=== PATIENT | male | born 1955 | race Caucasian/White ===

== ENCOUNTER 2018-03-21 20:43 | Emergency (ER) | payer OTHER ==
[2018-03-21] MEDS ORDERED: PROPOFOL 1,000 MG/100 ML INFUS..BTL IV ONE (20:51)
[2018-03-21] MEDS ORDERED: AMIODARONE HCL INJ 150 MG/3 ML VIAL IV ONE (20:52)
[2018-03-21] MEDS ORDERED: DEXTROSE 5%-WATER 500 ML with AMIODARONE HCL 900 MG IV PRN ×2 (20:56)
[2018-03-21] MEDS ORDERED: PIPERACILLIN/TAZOBACTAM 3.375 GM VIAL IV ONE (21:00)
[2018-03-21 21:10] LABS: ABSOLUTE BASOPHILS # (AUTO) 0.1 10^3/uL (0.0-0.2); ABSOLUTE EOSINOPHILS # (AUTO) 0.5 10^3/uL (0.0-0.6); ABSOLUTE LYMPHOCYTES (AUTO) 5.8 10^3/uL (0.5-4.7); ABSOLUTE MONOCYTES (AUTO) 0.5 10^3/uL (0.1-1.4); ABSOLUTE NEUT (AUTO) 5.8 10^3/uL (1.7-8.2); BASOPHILS % (AUTO) 0.5 % (0-2); EOSINOPHILS % (AUTO) 3.8 % (0-6); HEMATOCRIT 52.3 % (37.9-51.0); HEMOGLOBIN 16.9 g/dL (13.5-17.0); LYMPHOCYTES % (AUTO) 45.6 % (13-45); MEAN CORPUSCULAR HEMOGLOBIN 30.6 pg (27.0-33.4); MEAN CORPUSCULAR HGB CONC 32.4 g/dL (32.0-36.0); MEAN CORPUSCULAR VOLUME 95 fl (80-97); MONOCYTES % (AUTO) 4.2 % (3-13); PLATELET COUNT 189 10^3/uL (150-450); RED BLOOD COUNT 5.54 10^6/uL (4.35-5.55); RED CELL DISTRIBUTION WIDTH 17.1 % (11.5-14.0); SEGMENTED NEUTROPHILS % (AUTO) 45.9 % (42-78); TOTAL CELLS COUNTED % (AUTO) 100 %; WHITE BLOOD COUNT 12.7 10^3/uL (4.0-10.5)
--- NOTE | 2018-03-21 21:22 | RADIOLOGY REPORT (SQ) ---
EXAM DESCRIPTION: CHEST SINGLE VIEW COMPLETED DATE/TIME: 03/21/2018 9:14 pm REASON FOR STUDY: Cardiac arrest, ET tube placement COMPARISON: None. EXAM PARAMETERS: NUMBER OF VIEWS: One view. TECHNIQUE: Single frontal radiographic view of the chest acquired. RADIATION DOSE: NA LIMITATIONS: None. FINDINGS: LUNGS AND PLEURA: Mild opacification is suggested in the right upper lobe. MEDIASTINUM AND HILAR STRUCTURES: No masses. Contour normal. HEART AND VASCULAR STRUCTURES: Heart size borderline. BONES: No acute findings. HARDWARE: Endotracheal tube has its tip 6 cm above the noelle. OTHER: No other significant finding. IMPRESSION: Endotracheal tube placement as described. Cannot exclude limited right upper lobe pneum onia. Borderline heart size. TECHNICAL DOCUMENTATION: JOB ID: [id number] [employer]- All Rights Reserved Reading location - IP/workstation name: [email or web address]
[2018-03-21 21:25] LABS: ALANINE AMINOTRANSFERASE 546 U/L (21-72); ALBUMIN 3.6 g/dL (3.5-5.0); ALKALINE PHOSPHATASE 85 U/L (38-126); ASPARTATE AMINO TRANSFERASE 429 U/L (17-59); BILIRUBIN,DIRECT 0.6 mg/dL (0.0-0.4); BILIRUBIN,TOTAL 0.9 mg/dL (0.2-1.3); BLOOD UREA NITROGEN 29 mg/dL (7-20); CALCIUM 10.7 mg/dL (8.4-10.2); GLUCOSE 197 mg/dL (75-110); POTASSIUM 5.3 mmol/L (3.6-5.0); TOTAL PROTEIN 6.3 g/dL (6.3-8.2)
[2018-03-21 21:30] LABS: CARBON DIOXIDE 18 mmol/L (22-30); CHLORIDE 103 mmol/L (98-107); SODIUM 141.9 mmol/L (137-145)
[2018-03-21 21:31] LABS: ALCOHOL < 10 mg/dL (NONE DETECTED); ANION GAP 21 (5-19)
[2018-03-21 21:36] LABS: TROPONIN I 0.075 ng/mL
[2018-03-21] MEDS ORDERED: ATROPINE SULFATE INJ 1 MG/1 ML VIAL ONE (21:44)
--- NOTE | 2018-03-21 21:44 | RADIOLOGY REPORT (SQ) ---
EXAM DESCRIPTION: CT HEAD WITHOUT COMPLETED DATE/TIME: 03/21/2018 9:31 pm REASON FOR STUDY: Cardiac arrest, ET tube placement COMPARISON: None. TECHNIQUE: Axial images acquired through the brain without intravenous contrast. Images reviewed wi th bone, brain and subdural windows. Additional sagittal and coronal reconstructions were generated. Images stored on PACS. All CT scanners at this facility use dose modulation, iterative reconstruction, and/or weight based d osing when appropriate to reduce radiation dose to as low as reasonably achievable (ALARA). [facility]: Dose Right [facility]: CareDose [facility]: Dose Right [facility]: Teradose 4D [facility]: Smart [employer] RADIATION DOSE: CT Rad equipment meets quality standard of care and radiation dose reduction techniq ues were employed. CTDIvol: 55.2 mGy. DLP: 1056 mGy-cm. mGy. LIMITATIONS: None. FINDINGS: VENTRICLES: Normal size and contour. CEREBRUM: No masses. No hemorrhage. No midline shift. No evidence for acute infarction. Normal gra y/white matter differentiation. No areas of low density in the white matter CEREBELLUM: No masses. No hemorrhage. No alteration of density. No evidence for acute infarction. EXTRAAXIAL SPACES: No fluid collections. No masses. ORBITS AND GLOBE: No intra- or extraconal masses. Normal contour of globe without masses. CALVARIUM: No fracture. PARANASAL SINUSES: No fluid or mucosal thickening. SOFT TISSUES: No mass or hematoma. OTHER: No other significant finding. IMPRESSION: NORMAL BRAIN CT WITHOUT CONTRAST. EVIDENCE OF ACUTE STROKE: NO. COMMENT: Quality ID # [id number]: Final reports with documentation of one or more dose reduction techniques (e.g., Automated exposure control, adjustment of the mA and/or kV according to patient size, use of iterative reconstruction technique) TECHNICAL DOCUMENTATION: JOB ID: [id number] [employer]- All Rights Reserved Reading location - IP/workstation name: [email or web address]
--- NOTE | 2018-03-21 21:52 | RADIOLOGY REPORT (SQ) ---
EXAM DESCRIPTION: CT CHEST WITH COMPLETED DATE/TIME: 03/21/2018 9:31 pm REASON FOR STUDY: Cardiac arrest, ET tube placement COMPARISON: Chest x-ray 03/21/2018 TECHNIQUE: CT scan of the chest performed using helical scanning technique with dynamic intravenous contrast injection. Images reviewed with lung, soft tissue and bone windows. Reconstructed coronal and sagittal MPR images reviewed. All images stored on PACS. All CT scanners at this facility use dose modulation, iterative reconstruction, and/or weight based d osing when appropriate to reduce radiation dose to as low as reasonably achievable (ALARA). [facility]: Dose Right [facility]: CareDose [facility]: Dose Right [facility]: Teradose 4D [facility]: [employer] CONTRAST TYPE AND DOSE: contrast/concentration: Isovue 350.00 mg/ml; Total Contrast Delivered: 80.0 ml; Total Saline Delivered: 50.0 ml RENAL FUNCTION: Waived by the emergency room physician. RADIATION DOSE: CT Rad equipment meets quality standard of care and radiation dose reduction techniq ues were employed. CTDIvol: 20.4 mGy. DLP: 711 mGy-cm. . LIMITATIONS: None. FINDINGS: LUNGS AND PLEURA: There is opacification in the right upper lobe. Dependent opacification is present in both upper lobes and lower lobes. Ground-glass infiltrates are present. HILAR AND MEDIASTINAL STRUCTURES: No identified masses or abnormal nodes. HEART AND VASCULAR STRUCTURES: No aneurysm or dissection. No central pulmonary emboli. No pericardi al effusion. HARDWARE: An endotracheal tube has its tip 4 cm above the noelle and NG tube extends to the stomach. . UPPER ABDOMEN: No significant findings. Limited exam. THYROID AND OTHER SOFT TISSUES: No masses. No adenopathy. BONES: No significant finding. OTHER: No other significant finding. IMPRESSION: 1. Right upper lobe pneumonia. 2. Pulmonary vascular congestion dependent atelectasis in both lungs. Cannot exclude mild pulmonary edema. Tube placement as described. TECHNICAL DOCUMENTATION: JOB ID: [id number] Quality ID # [id number]: Final reports with documentation of one or more dose reduction techniques (e.g., Au tomated exposure control, adjustment of the mA and/or kV according to patient size, use of iterative reconstruction technique) 2010 [employer]- All Rights Reserved Reading location - IP/workstation name: [email or web address]
[2018-03-21 22:19] LABS: ARTERIAL BLOOD BASE EXCESS -9.2 mmol/L; ARTERIAL BLOOD H2CO3 1.88 mmol/L (1.05-1.35); ARTERIAL BLOOD HCO3 20.9 mmol/L (20-26); ARTERIAL BLOOD O2 SATURATION 99.3 % (94-98); ARTERIAL BLOOD PCO2 62.4 mmHg (35-45); ARTERIAL BLOOD PO2 248.5 mmHg (80-100); ARTERIAL BLOOD TOTAL CO2 22.8 mmol/L (23-27)
[2018-03-21 22:20] LABS: ARTERIAL BLOOD FIO2 100%
[2018-03-21 22:21] LABS: ARTERIAL BLOOD PH 7.14 (7.35-7.45)
--- NOTE | 2018-03-21 22:25 | ER Document Report ---
ED General - General Chief Complaint: Cardiac Arrest Stated Complaint: CARDIAC ARREST Time Seen by Provider: 03/21/18 20:56 Cannot obtain history due to: Intubated, Unstable vital signs TRAVEL OUTSIDE OF THE [place] IN LAST 30 DAYS: No - HPI Notes: 62-year-old male without any known medical problems presents by EMS after cardiac arrest at the gym. Family states he was "sparring" when he suddenly stated he did not feel well and collapsed "hyperventilating." Bystander CPR was initiated. Fire department states AED advised shock. EMS states they do not believe shock was actually discharged. When EMS arrived, he was in asystole. He was given a total of 4 rounds of epinephrine. Patient then had episode of V. tach followed by V. fib. Patient was defibrillated. He was given 300 mg of amiodarone. They attempted intubation with ketamine and succinylcholine without success. A Robby airway was inserted. Blood pressure was 234/150. Family states he is very healthy. He takes multiple supplements including protein shakes and 5 hour energy. EMS states pupils appeared irregular prior to paralyzing patient. - Related Data Allergies/Adverse Reactions: No Known Allergies Allergy (Unverified 03/21/18 22:35) Past Medical History - General Cannot obtain history due to: Intubated, Unstable vital signs - Social History Smoking Status: Unknown if Ever Smoked Family History: Reviewed & Not Pertinent Patient has suicidal ideation: No Patient has homicidal ideation: No Endocrine Medical History: Reports: Hx Diabetes Mellitus Type 2 Renal/ Medical History: Denies: Hx Peritoneal Dialysis Review of Systems - Review of Systems -: Yes ROS unobtainable due to patient's medical condition - Intubated Physical Exam - Vital signs Vitals: Pulse Ox 96 03/21/18 20:43 - Notes Notes: PHYSICAL EXAMINATION: GENERAL: Patient intubated with Robby airway. Has some spontaneous respirations and swallowing with blinking of eyes. HEAD: Atraumatic, normocephalic. EYES: Pupils equal round and pinpoint, minimally reactive ENT: nares patent, orally intubated with Robby airway. Mucous membranes moist. NECK: C-collar in place. LUNGS: Rhonchorous breath sounds equal bilaterally. Orally intubated. HEART: Bradycardic rate and regular rhythm, no chest wall injury ABDOMEN: Soft, normoactive bowel sounds. EXTREMITIES: No trauma appreciated to all extremities. No cyanosis. NEUROLOGICAL: Some spontaneous movements. No purposeful movements. PSYCH: Unable to assess. SKIN: Warm, Dry, normal turgor, no rashes or lesions noted. Course - Re-evaluation Re-evalutation: 03/21/18 22:43 Strips reviewed from EMS and patient had episode of V. tach and V. fib. Ice packs applied to groin and axilla and temp Almendarez inserted. Placed on amiodarone drip upon arrival. Robby airway removed and intubated with 8 ET tube without difficulty using a glide scope. Oral gastric tube inserted. Bedside echocardiogram shows no evidence of effusion. CXR shows ETT 6cm above noelle. ETT pushed 2cm. Patient has sinus bradycardia. CT head unremarkable. CT chest shows bilateral infiltrates with possible pleural effusions ETT 4cm above noelle after placement change. Bradycardia worsened in the 40s and patient was given 0.5 mg of Ativan. Cultures obtained. IV antibiotics ordered. Discussed with harness tier at [facility], , and patient accepted. Transfer arranged. 03/21/18 23:21 flight crew at bedside. intermittent episdoes of bradycardia with junctional rhythm. sedated on propofol gtt. some shivering from ice packs. - Vital Signs Vital signs: Temp Pulse Resp BP Pulse Ox 97.7 F 14 112/81 97 03/21/18 23:11 03/21/18 23:11 03/21/18 23:11 03/21/18 23:11 - Laboratory Result Diagrams: 03/21/18 20:45 03/21/18 20:45 Laboratory results interpreted by me: 03/21/18 03/21/18 03/21/18 20:45 20:45 20:45 WBC 12.7 H Hct 52.3 H RDW 17.1 H Lymphocytes % 45.6 H Absolute Lymphocytes 5.8 H Carbonic Acid ABG pH ABG pCO2 ABG pO2 ABG Total CO2 ABG O2 Saturation Potassium 5.3 H Carbon Dioxide 18 L Anion Gap 21 H BUN 29 H Creatinine 2.70 H Est GFR ( Amer) 29 L Est GFR (Non-Af Amer) 24 L Glucose 197 H Calcium 10.7 H Direct Bilirubin 0.6 H AST 429 H ALT 546 H NT-Pro-B Natriuret Pep 977 H 03/21/18 21:50 WBC Hct RDW Lymphocytes % Absolute Lymphocytes Carbonic Acid 1.88 H ABG pH 7.14 L* ABG pCO2 62.4 H ABG pO2 248.5 H ABG Total CO2 22.8 L ABG O2 Saturation 99.3 H Potassium Carbon Dioxide Anion Gap BUN Creatinine Est GFR ( Amer) Est GFR (Non-Af Amer) Glucose Calcium Direct Bilirubin AST ALT NT-Pro-B Natriuret Pep Procedures - Intubation Orotracheal Airway evaluation: Normal anatomy Intubation method: Orotracheal Blade size: 4 Equipment used: Glidescope ETT size: 8.0 ETT secured at: Teeth ETT secured at (cm): 26 Breath Sounds after Intubation: Equal End tidal CO2 confirmed: Yes Ventilator settings: SIMV Post Intubation Xray: Yes Intubation Complications: No complications - Ultrasound/Bedside Ultrasound/Bedside Ultrasound: Other - no pericaridal effusion Critical Care Note - Critical Care Note Total time excluding time spent on procedures (mins): 60 - Critical care time spent obtaining history from patient or surrogate, discussions with consultants , development of treatment plan with patient or surrogate, evaluation of patient 's response to treatment, examination of patient, ordering and performing treatments and interventions, ordering and review of laboratory studies, re- evaluation of patient's condition, ordering and review of radiographic studies and review of old charts Discharge - Discharge Clinical Impression: Ventricular fibrillation Condition: Critical Disposition: [facility] Admitting Provider: Nata Referrals: DEUCE SALDIVAR MD [Primary Care Provider] - Follow up as needed
[2018-03-21 23:24] VITALS: BP 112/85
--- NOTE | 2018-03-22 07:35 | EKG REPORT ---
SEVERITY:- ABNORMAL ECG - ATRIAL FIBRILLATION, V-RATE 76-86 NONSPECIFIC T ABNORMALITIES, LATERAL LEADS : Confirmed by: Ken Jacobson MD 22-Mar-2018 07:34:53
--- NOTE | 2018-03-22 07:37 | EKG REPORT ---
SEVERITY:- ABNORMAL ECG - SINUS RHYTHM LEFT ATRIAL ABNORMALITY NONSPECIFIC ST-T CHANGES LATERAL LEADS. : Confirmed by: Ken Jacobson MD 22-Mar-2018 07:35:41
== END 2018-03-21 23:47 | disposition short-term general hospital (02) ==
LOC: ER 20:43
DX: I49.01 Ventricular fibrillation (principal); I46.9 Cardiac arrest, cause unspecified; R09.89 Other specified symptoms and signs involving the circulatory and respiratory systems; E11.9 Type 2 diabetes mellitus without complications
CPT/HCPCS: 93005; 99291; 51702; 96375; 96365; 36415; 87040; 80307; 82803; 83735; 85025; 80053; 84484; 83880; 71045; 70450; 71260; 94660; 93010; 31500; J0461; J2704; J7060; J0282; J2543

== ENCOUNTER 2018-05-09 07:05 | Emergency (ER) | payer OTHER ==
--- NOTE | 2018-05-09 08:35 | ER Document Report ---
ED General - General Chief Complaint: Knee Pain Stated Complaint: KNEE PAIN Time Seen by Provider: 05/09/18 08:00 Notes: Pt. is a 53 year old male presenting to the ED with swelling to right foot. Per the pt. is s/p cardiac arrest on 03/21/2018. Was d/eugenie from [facility] on 04/19/2018. Stated that from the cardiac arrest the pt. has suffered an anoxic brain injury. Stated that he has been getting better over the last few weeks as far as knowing the date and current events. stated that over the last two days she has noticed that the Pt. has had increased swelling and redness to the pinky toe of his right foot. Stated that since his injury he has been dx with Diabeties and has started Insulin. State that he had a DVT in his right leg while in the hospital and is currently on blood thinners for that. Stated that the Pt. has an apt with Vascular Surgery on 05/30 due to the diabetic neuropathy and DVT in the past. stated that today she thinks the Pt. is a little more confused than normal. Stated that the Pt has been getting better with remembering things and knowing current events but noticed a big change since the pt. woke up this morning. stated that it has been a long road of recovery with the Pt. since waking up from cardiac arrest, but noted he was doing a lot better. was worried of how Pt. could not tell her the date or what time of day it was this morning. Pt. currently denies CP, SOB, nausea, vomiting, abd pain, dysuria , fever, or URI sumptoms. Stated he only has pain in right pinky toe. PMH: Anoxic brain injury from cardiac arrest, diabetes, hypertension, hyperlipidemia, DVT, AICD Medications: Amlodipine, aspirin, atorvastatin, Lantus, Januvia, propanolol, Apixaban, gabapentin Allegies: none PCP: Vincent Dejesus TRAVEL OUTSIDE OF THE [place] IN LAST 30 DAYS: No - Related Data Allergies/Adverse Reactions: No Known Allergies Allergy (Unverified 03/21/18 22:35) Past Medical History - General Information source: Patient, Relative - Social History Smoking Status: Never Smoker Chew tobacco use (# tins/day): No Frequency of alcohol use: Rare Drug Abuse: None Lives with: Family Family History: Reviewed & Not Pertinent Patient has suicidal ideation: No Patient has homicidal ideation: No - Past Medical History Cardiac Medical History: Reports: Hx Hypertension Endocrine Medical History: Reports: Hx Diabetes Mellitus Type 2 Renal/ Medical History: Denies: Hx Peritoneal Dialysis Past Surgical History: Reports: Hx Cardiac Catheterization - pacemaker surgery Review of Systems - Review of Systems Constitutional: See HPI EENT: See HPI Cardiovascular: See HPI Respiratory: See HPI Gastrointestinal: See HPI Genitourinary: No symptoms reported Male Genitourinary: No symptoms reported Musculoskeletal: See HPI Skin: See HPI Hematologic/Lymphatic: See HPI Neurological/Psychological: See HPI Physical Exam - Vital signs Vitals: Temp Pulse Resp BP Pulse Ox 98.0 F 63 20 132/84 H 96 05/09/18 07:13 05/09/18 07:13 05/09/18 07:13 05/09/18 07:13 05/09/18 07:13 - Notes Notes: GENERAL: Alert, interacts well. No acute distress. HEAD: Normocephalic, atraumatic. EYES: Pupils equal, round, and reactive to light. Extraocular movements intact. ENT: Oral mucosa moist, tongue midline. NECK: Full range of motion. Supple. Trachea midline. LUNGS: Clear to auscultation bilaterally, no wheezes, rales, or rhonchi. No respiratory distress. HEART: Regular rate and rhythm. No murmur ABDOMEN: Soft, non-tender. Non-distended. Bowel sounds present in all 4 quadrants. EXTREMITIES: Moves all 4 extremities spontaneously. No edema, normal radial and dorsalis pedis pulses bilaterally. No cyanosis. No calf tenderness or swelling. BACK: no cervical, thoracic, lumbar midline tenderness. No saddle anesthesia, normal distal neurovascular exam. NEUROLOGICAL: Alert to self and , not to current date, slow speech but not slurred, per this is his intermittent baseline since cardiac arrest. PSYCH: Normal affect, normal mood. SKIN: Warm, dry, normal turgor. Ulcerated lesion 1cm x1cm noted distal pinky toe laterally with surrounding redness and warmth 5cm x5cm. FROM foot and toes R LE. No red streaking noted. Course - Re-evaluation Re-evalutation: Discussed Pt. change in mental status with the who originally wanted to refuse CT. Stated that she did not think he needed one because he has been increasingly confused and then alert since cardiac arrest. Stated that was his normal. Discussed Pts lab results with family, stated they have been watching his kidney function since his cardiac arrest and it has always been elevated. I offered to give the Pt. IV hydration in the ED and he wished to leave. and pt. both stated they would have him drink water at home but they did not want to stay in the ED any longer. Discussed WBC with who was surprised to see they were not elevated. Stated now she wishes to get a CT because she was hoping that there would be in infx which would be why the Pt. was intermittently confused. Stat CT ordered, although stated pt. was currently at a baseline mentation (that he has been for the last week.) Originally had refused pain medications, now Pt. stated that he wants it d/t pain in right foot. Will give RX for home use. stated they have an apt with the Pts Neurologist on 05/11 and they will ask about increasing the Pts Gabapentin. currently stated she thinks the Pt. takes it three times a day but does not know the dose. No signs of leukocytosis or wide spread infx, will treat cellulitis with oral abx. Extensive conversation with and Pt. about return precautions. Also offered admit for monitoring TIA/CVA symptoms. and Pt continue to refuse admission and stated that they want to go home. stated that she thinks the pt. is at his baseline mental status since cardiac arrest and stated that he has been intermittently confused and alert since event. very overwhelmed with current situation, at times crying in the room with Pt. CAOx4 and stated that she has been through a lot since cardiac arrest that she sometimes gets overwhelmed with the pts current mental state because he was "so perfect" before the cardiac arrest. continues to state that the Pt. is currently at his baseline mentally and she wishes to be d/c. She will follow up with Neuro on 05/11/2018. - Vital Signs Vital signs: Temp Pulse Resp BP Pulse Ox 97.8 F 61 18 130/83 H 97 05/09/18 11:15 05/09/18 11:15 05/09/18 11:15 05/09/18 11:15 05/09/18 11:15 - Laboratory Result Diagrams: 05/09/18 07:56 05/09/18 09:20 Laboratory results interpreted by me: 05/09/18 05/09/18 07:56 09:20 WBC 10.7 H RDW 15.8 H Carbon Dioxide 31 H BUN 26 H Creatinine 1.32 H Est GFR (Non-Af Amer) 55 L Glucose 152 H Direct Bilirubin 0.5 H Discharge - Discharge Clinical Impression: Cellulitis Qualifiers: Site of cellulitis: extremity Site of cellulitis of extremity: toe Laterality: right Qualified Code(s): L03.031 - Cellulitis of right toe Condition: Stable Disposition: HOME, SELF-CARE Additional Instructions: As we discussed you have been seen and treated in the emergency room for a skin infection of your right foot. Due to your diabetes the skin infection can become very serious. Take antibiotics as prescribed. Follow-up with primary care in 24-48 hours. Return to the emergency room should the redness or swelling around your foot get worse, you develop a fever, vomiting, or any other concerning symptoms. Prescriptions: Cephalexin Monohydrate [Keflex 500 mg Capsule] 500 mg PO QID 14 Days capsule Morphine Sulfate [Morphine Ir 15 Mg Tablet] 15 mg PO Q4H PRN #12 tablet PRN Reason: Sulfamethoxazole/Trimethoprim [Bactrim Ds Tablet] 1 each PO BID 14 Days tablet
[2018-05-09 08:55] LABS: ABSOLUTE EOSINOPHILS # (AUTO) 0.3 10^3/uL (0.0-0.6); ABSOLUTE LYMPHOCYTES (AUTO) 1.5 10^3/uL (0.5-4.7); ABSOLUTE MONOCYTES (AUTO) 0.9 10^3/uL (0.1-1.4); ABSOLUTE NEUT (AUTO) 7.9 10^3/uL (1.7-8.2); BASOPHILS % (AUTO) 0.4 % (0-2); EOSINOPHILS % (AUTO) 3.1 % (0-6); HEMATOCRIT 42.6 % (37.9-51.0); HEMOGLOBIN 14.9 g/dL (13.5-17.0); LYMPHOCYTES % (AUTO) 13.9 % (13-45); MEAN CORPUSCULAR HEMOGLOBIN 31.6 pg (27.0-33.4); MEAN CORPUSCULAR VOLUME 90 fl (80-97); MONOCYTES % (AUTO) 8.8 % (3-13); PLATELET COUNT 167 10^3/uL (150-450); RED BLOOD COUNT 4.72 10^6/uL (4.35-5.55); RED CELL DISTRIBUTION WIDTH 15.8 % (11.5-14.0); SEGMENTED NEUTROPHILS % (AUTO) 73.8 % (42-78); TOTAL CELLS COUNTED % (AUTO) 100 %; WHITE BLOOD COUNT 10.7 10^3/uL (4.0-10.5)
--- NOTE | 2018-05-09 09:04 | RADIOLOGY REPORT (SQ) ---
EXAM DESCRIPTION: FOOT RIGHT COMPLETE COMPLETED DATE/TIME: 05/09/2018 8:49 am REASON FOR STUDY: redness/swelling COMPARISON: None. NUMBER OF VIEWS: Three views. TECHNIQUE: AP, lateral and oblique radiographic images acquired of the right foot. LIMITATIONS: None. FINDINGS: MINERALIZATION: Normal. BONES: No acute fracture or dislocation. Bipartite tibia sesamoid bone overlying the head of the fir st metatarsal bone. Oral a sensory ossicles cuboid bone, normal anatomic variant. No worrisome bone lesions. JOINTS: Hallux valgus deformity and degenerative changes at the first metatarsophalangeal joint. As sociated bunion. SOFT TISSUES: Soft tissue swelling. Soft tissue vascular calcifications. No foreign body. OTHER: No other significant finding. IMPRESSION: 1. No acute osseous findings. 2. Degenerative changes and hallux valgus deformity at the first metatarsophalangeal joint. Associat ed bunion. TECHNICAL DOCUMENTATION: JOB ID: [id number] [employer]- All Rights Reserved Reading location - IP/workstation name: [email or web address]
[2018-05-09] MEDS ORDERED: MORPHINE SULFATE IR 15 MG TABLET PO ONE ×2 (10:01→10:36)
--- NOTE | 2018-05-09 10:03 | RADIOLOGY REPORT (SQ) ---
EXAM DESCRIPTION: CT HEAD WITHOUT COMPLETED DATE/TIME: 05/09/2018 9:42 am REASON FOR STUDY: change in mental status COMPARISON: None. TECHNIQUE: Axial images acquired through the brain without intravenous contrast. Images reviewed wi th bone, brain and subdural windows. Additional sagittal and coronal reconstructions were generated. Images stored on PACS. All CT scanners at this facility use dose modulation, iterative reconstruction, and/or weight based d osing when appropriate to reduce radiation dose to as low as reasonably achievable (ALARA). [facility]: Dose Right [facility]: CareDose [facility]: Dose Right [facility]: Teradose 4D [facility]: Smart [employer] RADIATION DOSE: CT Rad equipment meets quality standard of care and radiation dose reduction techniq ues were employed. CTDIvol: 53.2 mGy. DLP: 991 mGy-cm. LIMITATIONS: None. FINDINGS: VENTRICLES: Normal size and contour. The cisterns are patent. CEREBRUM: No masses. No hemorrhage. No midline shift. No evidence for acute infarction. Normal gra y/white matter differentiation. No areas of low density in the white matter. CEREBELLUM: No masses. No hemorrhage. No alteration of density. No evidence for acute infarction. EXTRAAXIAL SPACES: No fluid collections. No masses. ORBITS AND GLOBE: No intra- or extraconal masses. Normal contour of globe without masses. CALVARIUM: No fracture. PARANASAL SINUSES: Deviation of the nasal septum to the left of the midline. No fluid or mucosal th ickening. SOFT TISSUES: No mass or hematoma. OTHER: Atherosclerotic changes involving the cavernous portion of the internal carotid arteries. Ce rumen in the bilateral external auditory canals. IMPRESSION: 1. No acute intracranial abnormality. EVIDENCE OF ACUTE STROKE: NO. COMMENT: Quality ID # [id number]: Final reports with documentation of one or more dose reduction techniques (e.g., Automated exposure control, adjustment of the mA and/or kV according to patient size, use of iterative reconstruction technique) TECHNICAL DOCUMENTATION: JOB ID: [id number] [employer]- All Rights Reserved Reading location - IP/workstation name: [email or web address]
[2018-05-09 10:17] LABS: ALANINE AMINOTRANSFERASE 42 U/L (21-72); ALBUMIN 3.9 g/dL (3.5-5.0); ALKALINE PHOSPHATASE 67 U/L (38-126); ANION GAP 8 (5-19); ASPARTATE AMINO TRANSFERASE 28 U/L (17-59); BILIRUBIN,DIRECT 0.5 mg/dL (0.0-0.4); BILIRUBIN,TOTAL 1.1 mg/dL (0.2-1.3); BLOOD UREA NITROGEN 26 mg/dL (7-20); CALCIUM 9.8 mg/dL (8.4-10.2); CARBON DIOXIDE 31 mmol/L (22-30); CHLORIDE 98 mmol/L (98-107); GLUCOSE 152 mg/dL (75-110); POTASSIUM 4.3 mmol/L (3.6-5.0); SODIUM 137.4 mmol/L (137-145); TOTAL PROTEIN 7.1 g/dL (6.3-8.2)
[2018-05-09] MEDS ORDERED: NORMAL SALINE 1000 ML 1,000 ML IV ONE (10:36)
[2018-05-09 11:19] VITALS: BP 130/83
== END 2018-05-09 11:15 | disposition home or self-care (01) ==
LOC: ER 07:05
DX: L03.031 Cellulitis of right toe (principal); E11.40 Type 2 diabetes mellitus with diabetic neuropathy, unspecified; E78.5 Hyperlipidemia, unspecified; I82.401 Acute embolism and thrombosis of unspecified deep veins of right lower extremity; Z79.01 Long term (current) use of anticoagulants; G93.1 Anoxic brain damage, not elsewhere classified; I10 Essential (primary) hypertension; Z86.74 Personal history of sudden cardiac arrest; Z95.0 Presence of cardiac pacemaker; Z79.02 Long term (current) use of antithrombotics/antiplatelets; Z79.899 Other long term (current) drug therapy
CPT/HCPCS: 36415; 70450; 80053; 85025; 87040; 87077; 87186; 99284

== ENCOUNTER 2018-05-09 23:35 | Emergency (ER) | payer OTHER ==
[2018-05-10] MEDS ORDERED: LORAZEPAM INJ 2 MG/1 ML VIAL IV ONE (00:14)
--- NOTE | 2018-05-10 00:17 | ER Document Report ---
ED General - General Chief Complaint: medication reaction Stated Complaint: TREMORS Time Seen by Provider: 05/10/18 00:06 Notes: Patient is a 63-year-old male that comes to the emergency department for chief complaint of shaking and tremors. He states that his tremors started slightly 2 days ago after he started taking gabapentin, he states that now today before noon his tremors became much worse and now he cannot even hold anything to eat or drink, he cannot sleep. He denies any other complaints. He tried taking Benadryl at home without any change. TRAVEL OUTSIDE OF THE [place] IN LAST 30 DAYS: No - Related Data Allergies/Adverse Reactions: No Known Allergies Allergy (Unverified 03/21/18 22:35) Past Medical History - General Information source: Patient, Relative - Social History Smoking Status: Never Smoker Frequency of alcohol use: None Drug Abuse: None Lives with: Family Family History: Reviewed & Not Pertinent - Past Medical History Cardiac Medical History: Reports: Hx Hypertension Endocrine Medical History: Reports: Hx Diabetes Mellitus Type 2 Renal/ Medical History: Denies: Hx Peritoneal Dialysis Past Surgical History: Reports: Hx Cardiac Catheterization - pacemaker surgery Review of Systems - Review of Systems Constitutional: No symptoms reported EENT: No symptoms reported Cardiovascular: No symptoms reported Respiratory: No symptoms reported Gastrointestinal: No symptoms reported Genitourinary: No symptoms reported Male Genitourinary: No symptoms reported Musculoskeletal: See HPI Skin: No symptoms reported Hematologic/Lymphatic: No symptoms reported Neurological/Psychological: See HPI Physical Exam - Vital signs Vitals: Temp Pulse Resp Pulse Ox 99.4 F 76 16 100 05/09/18 23:49 05/09/18 23:49 05/09/18 23:49 05/09/18 23:49 - Notes Notes: GENERAL: Alert, appears uncomfortable, making jerking motion with torso and limbs, appears to be unintentionally moving extremities, mainly upper extremities. HEAD: Normocephalic, atraumatic. EYES: Pupils equal, round, and reactive to light. Extraocular movements intact. ENT: Oral mucosa moist, tongue midline. [Nares patent, no nasal septal hematoma , TM's intact.] NECK: Full range of motion. Supple. Trachea midline. LUNGS: Clear to auscultation bilaterally, no wheezes, rales, or rhonchi. No respiratory distress. HEART: Regular rate and rhythm. No murmur ABDOMEN: Soft, non-tender. Non-distended. Bowel sounds present in all 4 quadrants. EXTREMITIES: Moves all 4 extremities spontaneously. No edema, normal radial and dorsalis pedis pulses bilaterally. No cyanosis. BACK: no cervical, thoracic, lumbar midline tenderness. No saddle anesthesia, normal distal neurovascular exam. NEUROLOGICAL: Alert and oriented x3. Normal speech. [cranial nerves II through XII grossly intact]. PSYCH: Slightly agitated SKIN: Warm, dry, normal turgor. No rashes or lesions noted. Course - Re-evaluation Re-evalutation: Patient with significant appearing tremors, this appears to be uncomfortable, patient is frustrated by them. Remaining examination is unremarkable. Vital signs are unremarkable. CBC, chemistry, generally unremarkable except for mild renal insufficiency, uncertain if this is new or not. Patient was given Ativan, after this he became calm and relaxed, fell asleep, after this he was arousable, he still has occasional tremors but significantly reduced. I did discuss with Dr. Sinha. This does appear to be a medication reaction because of the timeline that it occurred, tremors are a possible side effect of gabapentin. Discussed with patient and . They are very satisfied with the improvement, request the same medication for home while he is stopping the gabapentin. Discussed follow- up and return precautions. Patient and state understanding and agreement. - Vital Signs Vital signs: Temp Pulse Resp BP Pulse Ox 99.4 F 67 18 140/76 H 96 05/09/18 23:49 05/10/18 02:24 05/10/18 02:24 05/10/18 02:24 05/10/18 02:24 - Laboratory Result Diagrams: 05/10/18 00:45 05/10/18 00:45 Laboratory results interpreted by me: 05/10/18 05/10/18 00:45 00:45 RDW 16.0 H Plt Count 124 L BUN 27 H Creatinine 1.42 H Est GFR (Non-Af Amer) 51 L Discharge - Discharge Clinical Impression: Medication side effect, Tremor Condition: Stable Disposition: HOME, SELF-CARE Additional Instructions: His evaluation is most consistent with medication side effects causing his symptoms. You have been provided Ativan, take half to 1 mg dose every 4-6 hours as needed for the tremors. Stop the gabapentin. Symptoms should resolve with time. Follow-up closely with your primary care provider for additional evaluation and management. Return if you worsen or if any new concerning symptoms develop such as fever, severe tremors, inability to urinate, confusion, etc. Prescriptions: Lorazepam [Ativan 1 mg Tablet] 0.5 - 1 mg PO Q4 PRN #12 tab PRN Reason:
[2018-05-10 00:55] LABS: ABSOLUTE EOSINOPHILS # (AUTO) 0.2 10^3/uL (0.0-0.6); ABSOLUTE LYMPHOCYTES (AUTO) 1.5 10^3/uL (0.5-4.7); ABSOLUTE MONOCYTES (AUTO) 1.1 10^3/uL (0.1-1.4); ABSOLUTE NEUT (AUTO) 7.6 10^3/uL (1.7-8.2); BASOPHILS % (AUTO) 0.5 % (0-2); EOSINOPHILS % (AUTO) 1.9 % (0-6); HEMATOCRIT 41.5 % (37.9-51.0); HEMOGLOBIN 14.7 g/dL (13.5-17.0); LYMPHOCYTES % (AUTO) 14.4 % (13-45); MEAN CORPUSCULAR HEMOGLOBIN 31.8 pg (27.0-33.4); MEAN CORPUSCULAR HGB CONC 35.4 g/dL (32.0-36.0); MEAN CORPUSCULAR VOLUME 90 fl (80-97); MONOCYTES % (AUTO) 10.7 % (3-13); PLATELET COUNT 124 10^3/uL (150-450); RED BLOOD COUNT 4.63 10^6/uL (4.35-5.55); SEGMENTED NEUTROPHILS % (AUTO) 72.5 % (42-78); TOTAL CELLS COUNTED % (AUTO) 100 %; WHITE BLOOD COUNT 10.5 10^3/uL (4.0-10.5)
[2018-05-10 01:13] LABS: ANION GAP 9 (5-19); BLOOD UREA NITROGEN 27 mg/dL (7-20); CALCIUM 9.5 mg/dL (8.4-10.2); CARBON DIOXIDE 26 mmol/L (22-30); CHLORIDE 104 mmol/L (98-107); CREATINE KINASE 153 U/L (55-170); GLUCOSE 104 mg/dL (75-110); POTASSIUM 4.2 mmol/L (3.6-5.0); SODIUM 138.6 mmol/L (137-145)
[2018-05-10] MEDS ORDERED: LORAZEPAM 1 MG TABLET PO ONE (01:57)
[2018-05-10 02:25] VITALS: BP 140/76
== END 2018-05-10 02:24 | disposition home or self-care (01) ==
LOC: ER 23:35
DX: G25.1 Drug-induced tremor (principal); T42.6X5A Adverse effect of other antiepileptic and sedative-hypnotic drugs, initial encounter; N28.9 Disorder of kidney and ureter, unspecified; I10 Essential (primary) hypertension; E11.9 Type 2 diabetes mellitus without complications; Z95.0 Presence of cardiac pacemaker
CPT/HCPCS: 99284; 96374; 36415; 82550; 85025; 80048; J2060